=== PATIENT | male | born 1995 | race Two or more races ===

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

== ENCOUNTER 2021-05-04 00:32 | Emergency (ER) | payer MEDICAID, OTHER ==
[~2021-05-04] VITALS: Ht 172.7 cm; Wt 59.0 kg
[2021-05-04] MEDS ORDERED: HYDROcodone-ACET 7.5/325MG TAB PO ONE (01:00)
[2021-05-04] MEDS ORDERED: LIDOCAINE 5% TOPICAL PATCH TOP ONE (01:00)
[2021-05-04] MEDS ORDERED: HYDROcodone-ACET 10/325MG TAB PO ONE (08:00)
[2021-05-04] MEDS ORDERED: ONDANSETRON ODT 4 MG TAB PO ONE (10:00)
[2021-05-04 10:59] VITALS: BP 120/70
== END 2021-05-04 11:28 | disposition short-term general hospital (02) ==
LOC: ER 00:39
DX: K52.9 Noninfective gastroenteritis and colitis, unspecified (principal); M54.9 Dorsalgia, unspecified; Z79.899 Other long term (current) drug therapy; V49.9XXA Car occupant (driver) (passenger) injured in unspecified traffic accident, initial encounter; Y93.89 Activity, other specified; Y92.410 Unspecified street and highway as the place of occurrence of the external cause; Y99.8 Other external cause status
CPT/HCPCS: 72131; 99284; Q0162